=== PATIENT | female | born 1995 | race Caucasian/White ===

== ENCOUNTER 2016-09-19 12:52 | Emergency (ER) | payer SELFPAY ==
[~2016-09-19] VITALS: Ht 160 cm; Wt 81.5 kg
[~2016-09-19 12:52] MED LIST: BISM262O23 PO; RANI150T9 PO; SUCR1TAB56 PO
[2016-09-19 13:10] VITALS: Ht 160 cm; Wt 81.5 kg
[2016-09-19 14:31] LABS: URINE BLOOD (Dip) POC 3+ (NEGATIVE)
[2016-09-19] MEDS ORDERED: CEPH-443 PO (15:16)
[2016-09-19] MEDS ORDERED: PHEN-537 PO (15:16)
[2016-09-19 15:32] VITALS: TEMP 98.2
--- NOTE | 2016-09-19 15:41 | ERD ---
ER Documentation Chief Complaint Date/Time DATE: 09/19/16 TIME: 15:35 Chief Complaint Pt with dysuria, blood in urine, frequency x 1 week. HPI 20-year-old female patient with no significant past medical history presents to the ED complaining of dysuria, flank pain and hematuria intermittently for 1 week. Reports that she has a burning sensation when she pees. States that initially she was taking cranberry juice which slightly alleviated her symptoms. States that her last menses was on August 27, 2016. Reports that she has some slight flank pain. Denies any vaginal bleeding, vaginal discharge, abdominal pain, nausea, vomiting, diarrhea. ROS All systems reviewed and are negative except as per history of present illness. Medications Home Meds Active Scripts Cephalexin* (Keflex*) 500 Mg Capsule, 500 MG PO QID for 7 Days, CAP Prov:LESLEY PHOENIX PA-C 09/19/16 Phenazopyridine Hcl* (Pyridium*) 100 Mg Tab, 100 MG PO TID Y for URINARY PAIN, # 8 TAB Prov:LESLEY PHOENIX PA-C 09/19/16 Ranitidine Hcl* (Zantac*) 150 Mg Tablet, 150 MG PO BID Y for EPIGASTRIC PAIN, # 30 TAB Prov:MATTIE CONNOLLY 10/02/15 Sucralfate* (Carafate*) 1 Gm Tab, 1 GM PO QID, #30 TAB Prov:MATTIE CONNOLLY SReggie 10/02/15 Reported Medications Bismuth Subsalicylate* (Pepto-Bismol*) 262 Mg/15 Ml Oral.susp, 15 ML PO Q6H Y for CONSTIPATION, ML 10/02/15 Allergies Allergies: Coded Allergies: No Known Drug Allergies (Verified Allergy, Unknown, 10/02/15) PMhx/Soc Medical and Surgical Hx: pt denies Medical Hx, pt denies Surgical Hx Hx Alcohol Use: No Hx Substance Use: No Hx Tobacco Use: No Smoking Status: Never smoker Physical Exam Vitals Vital Signs Date Time Temp Pulse Resp B/P Pulse Ox O2 Delivery O2 Flow Rate FiO2 09/19/16 13:10 98.4 66 16 133/72 98 Physical Exam Const: Ffj-zvy-[id number], well-nourished. In no acute distress. Head: Atraumatic, normocephalic Eyes: Normal Conjunctiva without injection. No purulent discharge. ENT: Normal external ear, nose. Moist oropharynx without tonsillar exudates. Non -erythematous pharynx. Uvula midline. No drooling. No trismus. Neck: No cervical midline tenderness. Full range of motion. No meningismus. No cervical lymphadenopathy. No JVD. Resp: Clear to auscultation bilaterally. No wheezing, rhonchi, rales, or crackles. No accessory muscle use. No retractions. Cardio: Regular rate and rhythm. No murmurs, rubs or gallops. Abd: Soft, nontender, non distended. Normal bowel sounds. No palpable masses. No rebound tenderness. No guarding. Negative McBurney's point. Negative psoas sign. Negative obturator sign. Back: No midline tenderness. No CVA tenderness. Skin: No petechiae or rashes Ext: No cyanosis, or edema. Neur: Awake and alert. Normal gait. Normal coordination. Psych: Normal Mood and Affect Results 24 hrs Laboratory Tests Test 09/19/16 14:34 Bedside Urine pH (LAB) 5.5 Bedside Urine Protein (LAB) 1+ Bedside Urine Glucose (UA) Negative Bedside Urine Ketones (LAB) Negative Bedside Urine Blood 3+ Bedside Urine Nitrite (LAB) Negative Bedside Urine Leukocyte Esterase (L 1+ Procedures/MDM 20-year-old female patient with no significant past medical history presents to the ED complaining of burning with urination, flank pain, dysuria, gross hematuria. Patient is afebrile nontoxic appearing. Patient has normal vital signs. A urine dip and urine was ordered to further evaluate patient. Urine dip showed 1+ leukocyte esterase, 3+ hematuria. Differentials include urinary tract infection vs. nephrolithiasis vs. early pyelonephritis . Patient however states that she no longer has flank pain. Patient will be treated for a urinary tract infection based on her symptoms. However due to the hematuria and being a smoker, patient was strictly instructed to follow-up with a urologist to rule out bladder cancer. Patient is ambulating here in the ED without difficulty. Denies saddle anesthesia, numbness or tingling, urine or bowel incontinence, weakness. Low suspicion for septic renal stone, cauda equina syndrome, cord compression, aortic aneurysm, aortic dissection, epidural abscess, spinal hematoma, malignancy, or other emergent conditions. Discharge medications: Keflex, Pyridium Follow up with primary care physician in 1-2 days. Instructed patient to return to the ED sooner for any worsening symptoms. Patient's questions were answered. Patient understood and agreed with discharge plan. Patient discharged stable. Departure Diagnosis: Primary Impression: Dysuria Condition: Stable Patient Instructions: Dysuria, Understanding Urinary Tract Infections (UTIs) Referrals: [facility] YOU HAVE RECEIVED A MEDICAL SCREENING EXAM AND THE RESULTS INDICATE THAT YOU DO NOT HAVE A CONDITION THAT REQUIRES URGENT TREATMENT IN THE EMERGENCY DEPARTMENT. FURTHER EVALUATION AND TREATMENT OF YOUR CONDITION CAN WAIT UNTIL YOU ARE SEEN IN YOUR DOCTORS OFFICE WITHIN THE NEXT 1-2 DAYS. IT IS YOUR RESPONSIBILITY TO MAKE AN APPOINTMENT FOR FOLOW-UP CARE. IF YOU HAVE A PRIMARY DOCTOR --you should call your primary doctor and schedule an appointment IF YOU DO NOT HAVE A PRIMARY DOCTOR YOU CAN CALL OUR PHYSICIAN REFERRAL HOTLINE AT IF YOU CAN NOT AFFORD TO SEE A PHYSICIAN YOU CAN CHOSE FROM THE FOLLOWING [facility] [address] [facility] [address] [employer] [facility] [address] [facility] [facility] [address] [facility] [address] [facility]. [facility] [address] [facility]. [facility] YOU HAVE RECEIVED A MEDICAL SCREENING EXAM AND THE RESULTS INDICATE THAT YOU DO NOT HAVE A CONDITION THAT REQUIRES URGENT TREATMENT IN THE EMERGENCY DEPARTMENT. FURTHER EVALUATION AND TREATMENT OF YOUR CONDITION CAN WAIT UNTIL YOU ARE SEEN IN YOUR DOCTORS OFFICE WITHIN THE NEXT 1-2 DAYS. IT IS YOUR RESPONSIBILITY TO MAKE AN APPOINTMENT FOR FOLOW-UP CARE. IF YOU HAVE A PRIMARY DOCTOR --you should call your primary doctor and schedule and appointment IF YOU DO NOT HAVE A PRIMARY DOCTOR YOU CAN CALL OUR PHYSICIAN REFERRAL HOTLINE AT . IF YOU CAN NOT AFFORD TO SEE A PHYSICIAN YOU CAN CHOSE FROM THE FOLLOWING [facility] INSTITUTIONS: [facility] [address] [place] [address] [facility] [address] [place] [address] [facility] [address] [place] [address] [facility] Additional Instructions: Call your primary care doctor TOMORROW for an appointment during the next 1-2 days for a referral to a urologist.See the doctor sooner or return here if your condition worsens before your appointment time. LESLEY PHOENIX PA-C Sep 19, 2016 15:41 LESLEY PHOENIX PA-C Sep 19, 2016 15:41
== END 2016-09-19 15:29 | disposition home or self-care (01) ==
LOC: FTE 12:52
DX: R30.0 Dysuria (principal)
CPT/HCPCS: 81003; 99283

== ENCOUNTER 2017-02-06 05:19 | Emergency (ER) | payer MEDICAID ==
[~2017-02-06] VITALS: Ht 162.6 cm; Wt 84.3 kg
[~2017-02-06 05:19] MED LIST changes: +CEPH-443 PO; +PHEN-537 PO
[2017-02-06 05:29] VITALS: Ht 162.6 cm; Wt 84.3 kg
[2017-02-06] MEDS ORDERED: FAMOTIDINE 20 MG TAB PO STA (06:06)
[2017-02-06] MEDS ORDERED: ACETAMINOPHEN 500 MG TAB PO STA (06:06)
[2017-02-06] MEDS ORDERED: LIDOCAINE/MYLANTA 40 ML BTL PO STA (06:06)
--- NOTE | 2017-02-06 06:40 | ERD ---
ER Documentation Chief Complaint Chief Complaint 5 weeks upper abd pain, back pain HPI This is a 21 -year-old female who presents to the emergency department today complaining of upper abdominal pain and some back pain that started at midnight last night. States that she ate [id number] last night states that she took ranitidine. States that the pain is burning and she feels nauseated. States she is approximately 4-5 weeks . Denies any vaginal bleeding. States that one week ago she had an ultrasound and Shanice and everything was normal although they could not see the baby yet. Denies any fevers or chills. ROS All systems reviewed and are negative except as per history of present illness. Medications Home Meds Active Scripts Ondansetron Hcl* (Zofran*) 4 Mg Tablet, 4 MG PO Q6H for NAUSEA AND/OR VOMITING, #30 TAB Prov:BONILLA LARIOS PA-C 02/06/17 Famotidine* (Pepcid*) 20 Mg Tablet, 20 MG PO BID for 14 Days, TAB Prov:BONILLA LARIOS PA-C 02/06/17 Cephalexin* (Keflex*) 500 Mg Capsule, 500 MG PO QID for 7 Days, CAP Prov:BONILLA LARIOS PA-C 02/06/17 Acetaminophen* (Tylophen*) 500 Mg Capsule, 1 CAP PO Q6H Y for PAIN AND OR ELEVATED TEMP, #30 CAP Prov:BONILLA LARIOS PA-C 02/06/17 Cephalexin* (Keflex*) 500 Mg Capsule, 500 MG PO QID for 7 Days, CAP Prov:LESLEY PHOENIX PA-C 09/19/16 Phenazopyridine Hcl* (Pyridium*) 100 Mg Tab, 100 MG PO TID Y for URINARY PAIN, # 8 TAB Prov:LESLEY PHOENIX PA-C 09/19/16 Ranitidine Hcl* (Zantac*) 150 Mg Tablet, 150 MG PO BID Y for EPIGASTRIC PAIN, # 30 TAB Prov:MATTIE CONNOLLY 10/02/15 Sucralfate* (Carafate*) 1 Gm Tab, 1 GM PO QID, #30 TAB Prov:MATTIE CONNOLLY 10/02/15 Reported Medications Bismuth Subsalicylate* (Pepto-Bismol*) 262 Mg/15 Ml Oral.susp, 15 ML PO Q6H Y for CONSTIPATION, ML 10/02/15 Allergies Allergies: Coded Allergies: No Known Drug Allergies (Verified Allergy, Unknown, 10/02/15) PMhx/Soc Medical and Surgical Hx: pt denies Surgical Hx Hx Miscellaneous Medical Probl: Yes (gastritis) Hx Alcohol Use: No Hx Substance Use: No Hx Tobacco Use: No Smoking Status: Never smoker Physical Exam Vitals Vital Signs Date Time Temp Pulse Resp B/P Pulse Ox O2 Delivery O2 Flow Rate FiO2 02/06/17 05:29 98.3 97 20 130/73 100 Physical Exam Const: NAD Head: Atraumatic Eyes: Normal Conjunctiva ENT: Normal External Ears, Nose and Mouth. Neck: Full range of motion..~ No meningismus. Resp: Clear to auscultation bilaterally Cardio: Regular rate and rhythm, no murmurs Abd: Soft,epigastric and RUQ tenderness non distended. Normal bowel sounds. No Tenderness at McBurney's. No pelvic pain. Skin: No petechiae or rashes Back: No midline or flank tenderness Ext: No cyanosis, or edema Neur: Awake and alert Psych: Normal Mood and Affect Result Diagram: 02/06/1761902/06/1720 Results 24 hrs Laboratory Tests Test 02/06/17 06:20 02/06/17 06:21 White Blood Count 11.210^3/ul Red Blood Count 5.1010^6/ul Hemoglobin 12.3g/dl Hematocrit 38.8% Mean Corpuscular Volume 76.1fl Mean Corpuscular Hemoglobin 24.1pg Mean Corpuscular Hemoglobin Concent 31.7g/dl Red Cell Distribution Width 14.3% Platelet Count 51768^3/UL Mean Platelet Volume 10.2fl Neutrophils % 60.0% Lymphocytes % 31.5% Monocytes % 6.3% Eosinophils % 1.2% Basophils % 0.6% Nucleated Red Blood Cells % 0.0/100WBC Neutrophils # 6.710^3/ul Lymphocytes # 3.510^3/ul Monocytes # 0.710^3/ul Eosinophils # 0.110^3/ul Basophils # 0.110^3/ul Nucleated Red Blood Cells # 0.010^3/ul Sodium Level 141mmol/L Potassium Level 3.9mmol/L Chloride Level 102mmol/L Carbon Dioxide Level 24mmol/L Anion Gap 19 Blood Urea Nitrogen 8mg/dl Creatinine 0.58mg/dl Glucose Level 95mg/dl Calcium Level 10.0mg/dl Total Bilirubin 0.1mg/dl Direct Bilirubin 0.00mg/dl Indirect Bilirubin 0.1mg/dl Aspartate Amino Transf (AST/SGOT) 88IU/L Alanine Aminotransferase (ALT/SGPT) 89IU/L Alkaline Phosphatase 112IU/L Total Protein 8.5g/dl Albumin 4.7g/dl Globulin 3.80g/dl Albumin/Globulin Ratio 1.23 Lipase 115U/L Urine Color YELLOW Urine Clarity CLEAR Urine pH 5.0 Urine Specific [place] 1.018 Urine Ketones NEGATIVEmg/dL Urine Nitrite NEGATIVEmg/dL Urine Bilirubin NEGATIVEmg/dL Urine Urobilinogen NEGATIVEmg/dL Urine Leukocyte Esterase 2+Oleksandr/ul Urine Microscopic RBC 1/HPF Urine Microscopic WBC 5/HPF Urine Squamous Epithelial Cells FEW/HPF Urine Bacteria FEW/HPF Urine Hemoglobin NEGATIVEmg/dL Urine Glucose NEGATIVEmg/dL Urine Total Protein NEGATIVEmg/dl Current Medications Medications (Trade) Dose Ordered Sig/Catie Route PRN Reason Start Time Stop Time Status Last Admin Dose Admin Famotidine (Pepcid) 20 mg ONCE STAT PO 02/06/17 06:06 02/06/17 06:10 DC 02/06/17 06:30 Miscellaneous Medication (Gi Cocktail (2)) 40 ml ONCE STAT PO 02/06/17 06:06 02/06/17 06:10 DC 02/06/17 06:30 Acetaminophen (Tylenol Tab) 500 mg ONCE STAT PO 02/06/17 06:06 02/06/17 06:10 DC 02/06/17 06:30 DIAGNOSTIC IMAGING REPORT Patient: DARION WALTERS : 1995 Age: 21 Sex: F [id number] DOS: 02/06/17 0606 Ordering MD: BONILLA LARIOS PA-C [facility]: [facility] Room/Bed: PROCEDURE: Abdominal ultrasound, limited. CLINICAL INDICATION: Abdominal pain. TECHNIQUE: Multiple real-time images were acquired of the patient's right upper abdomen utilizing a high resolution transducer. COMPARISON: None FINDINGS: The liver demonstrates normal echogenicity and size measuring 14.8 cm. There is no focal mass or intrahepatic biliary ductal dilatation. The portal vein is patent. The gallbladder is not distended. Multiple small echogenic gallstones are identified. There is no pericholecystic fluid or gallbladder wall thickening. The common bile duct measures 4.1 mm in maximal dimension. The visualized portions of the pancreas are unremarkable. No free fluid is identified. The right kidney is normal size and echogenicity measuring 10.4 cm. There is no focal renal mass or echogenic calculus identified. There is no obstructive uropathy. IMPRESSION: Cholelithiasis without ultrasound evidence of cholecystitis. .Juan Yo MD, Date Time Electronically viewed and signed by .Juan Yo MD, on 02/06/2017 06:51 .T/ CC: BONILLA LARIOS PA-C Procedures/[facility] This is a 21-year-old female presents to the emergency department today complaining of upper abdominal and back pain that started last night. Given the location of the pain and status I did obtain laboratory workup as well as a right upper quadrant ultrasound and UA Laboratory workup mildly elevated white blood cell count. She is not anemic. Platelets are within normal limits. Electrolytes are within normal limits. Glucose is within normal limits. Liver enzymes are very mildly elevated. Lipase is within normal limits. UA shows 2+ leukocyte esterase negative nitrates. Right Upper quadrant ultrasound was gallstones without ultrasound evidence of cholecystitis. No pericholecystic fluid or gallbladder wall thickening. At this time is consistent with biliary colic and urinary tract infection. I have explained this to the patient. Indicated that yes she does have a urinary tract infection is currently being treated with it with amoxicillin. I explained to her that I do not feel that that drug will help her at this time and I have switched her to Keflex. Patient has no CVA tenderness and she is afebrile and otherwise well-appearing. Low suspicion for pyelonephritis or nephrolithiasis. Urine was sent for culture. Patient has no lower abdominal pain or pelvic pain and no vaginal bleeding and I do not feel that she requires further OB evaluation or management. Have low suspicion for tubo-ovarian abscess, ectopic , ovarian torsion. Patient was given Pepcid, Tylenol and a GI cocktail here in the emergency department. The patient will be given a prescription for Pepcid, Tylenol and Zofran for home At this time the patient is stable for discharge and outpatient management. Patient should follow up with their PCP in the next 1-2 days. They may return to the emergency department sooner for any persistent or worsening of symptoms. Patient understood and agreed with the plan. Discussed the patient with Dr. Galarza and he is in agreement with the plan Departure Diagnosis: Primary Impression: Biliary colic Additional Impression: UTI (urinary tract infection) Urinary tract infection type: site unspecified Hematuria presence: without hematuria Qualified Code: N39.0 - Urinary tract infection without hematuria, site unspecified Condition: Fair BONILLA LARIOS PA-C Feb 06, 2017 06:40
--- NOTE | 2017-02-06 06:51 | RADRPT ---
PROCEDURE: Abdominal ultrasound, limited. CLINICAL INDICATION: Abdominal pain. TECHNIQUE: Multiple real-time images were acquired of the patient's right upper abdomen utilizing a high resolution transducer. COMPARISON: None FINDINGS: The liver demonstrates normal echogenicity and size measuring 14.8 cm. There is no focal mass or in trahepatic biliary ductal dilatation. The portal vein is patent. The gallbladder is not distended. Multiple small echogenic gallstones are identified. There is no pericholecystic fluid or gallblad micheal wall thickening. The common bile duct measures 4.1 mm in maximal dimension. The visualized por tions of the pancreas are unremarkable. No free fluid is identified. The right kidney is normal size and echogenicity measuring 10.4 cm. There is no focal renal mass or echogenic calculus identified. There is no obstructive uropathy. IMPRESSION: Cholelithiasis without ultrasound evidence of cholecystitis. .Juan Yo MD, Date Time Electronically viewed and signed by .Juan Yo MD, on 02/06/2017 06:51 .T/
[2017-02-06] MEDS ORDERED: ACET500C5 PO (07:55)
[2017-02-06] MEDS ORDERED: FAMO-96 PO (07:55)
[2017-02-06] MEDS ORDERED: CEPH-443 PO (07:55)
[2017-02-06] MEDS ORDERED: ONDA4TAB8 PO (07:56)
== END 2017-02-06 08:06 | disposition home or self-care (01) ==
LOC: FTE 05:19
DX: O99.611 Diseases of the digestive system complicating pregnancy, first trimester (principal); O23.41 Unspecified infection of urinary tract in pregnancy, first trimester; K80.50 Calculus of bile duct without cholangitis or cholecystitis without obstruction; R10.10 Upper abdominal pain, unspecified; Z3A.00 Weeks of gestation of pregnancy not specified
CPT/HCPCS: 36415; 76705; 80053; 81001; 83690; 85025; 87086; Z7502; Z7610

== ENCOUNTER 2017-03-01 08:35 | Emergency (ER) | payer MEDICAID ==
[~2017-03-01] VITALS: Ht 162.6 cm; Wt 82.6 kg
[~2017-03-01 08:35] MED LIST changes: +ACET500C5 PO; +FAMO-96 PO; +ONDA4TAB8 PO
[2017-03-01 08:38] VITALS: Ht 162.6 cm; Wt 82.6 kg
[2017-03-01] MEDS ORDERED: morphine 2 MG INJ IV STA (09:07)
[2017-03-01] MEDS ORDERED: ONDANSETRON 4 MG INJ IV STA (09:07)
[2017-03-01] MEDS ORDERED: LACTATED RINGER'S 1,000 ML IV ONE (09:08)
[2017-03-01 09:34] LABS: BASOPHILS % 0.5 % (0.0-2.0); EOSINOPHILS # 0.1 10^3/ul (0.0-0.5); EOSINOPHILS % 1.1 % (0.0-7.0); HEMATOCRIT 34.9 % (37.0-47.0); HEMOGLOBIN 11.7 g/dl (12.0-16.0); LYMPHOCYTES # 2.3 10^3/ul (0.8-2.9); LYMPHOCYTES % 26.2 % (18.0-55.0); MEAN CORPUSCULAR HEMOGLOBIN 25.4 pg (29.0-33.0); MEAN CORPUSCULAR HGB CONC 33.5 g/dl (32.0-37.0); MEAN CORPUSCULAR VOLUME 75.7 fl (72.0-104.0); MONOCYTE # 0.7 10^3/ul (0.3-0.9); MONOCYTES % 7.4 % (0.0-13.0); NEUTROPHIL # 5.7 10^3/ul (1.6-7.5); NEUTROPHILS % 64.5 % (30.0-74.0); PLATELET COUNT 268 10^3/UL (140-415); RED BLOOD COUNT 4.61 10^6/ul (4.20-5.40); RED CELL DISTRIBUTION WIDTH 15.2 % (11.5-14.5); WHITE BLOOD COUNT 8.8 10^3/ul (4.8-10.8)
[2017-03-01 09:40] LABS: ADD UMIC YES; UR ASCORBIC ACID NEGATIVE (NEGATIVE); UR BILIRUBIN (Dip) NEGATIVE (NEGATIVE); UR BLOOD (Dip) NEGATIVE (NEGATIVE); UR CLARITY SLIGHTLY CLOUDY (CLEAR); UR COLOR YELLOW (YELLOW); UR GLUCOSE (Dip) NEGATIVE (NEGATIVE); UR KETONES (Dip) NEGATIVE (NEGATIVE); UR LEUKOCYTE ESTERASE (Dip) 1+ Leu/ul (NEGATIVE); UR MUCUS FEW /HPF (NONE SEEN); UR NITRITE (Dip) NEGATIVE (NEGATIVE); UR RBC 1 /HPF (0-5); UR SPECIFIC GRAVITY (Dip) 1.028 (1.003-1.030); UR SQUAMOUS EPITHELIAL CELL MODERATE /HPF (FEW); UR TOTAL PROTEIN (Dip) NEGATIVE (NEGATIVE); UR UROBILINOGEN (Dip) 2+ mg/dL (NEGATIVE)
[2017-03-01 09:58] LABS: ALBUMIN 4.1 g/dl (3.3-4.9); ALBUMIN/GLOBULIN RATIO 1.24; BILIRUBIN,INDIRECT 0.1 mg/dl (0-1.1); BILIRUBIN,TOTAL 0.1 mg/dl (0.2-1.3); CALCIUM 9.2 mg/dl (8.4-10.2); CREATININE 0.49 mg/dl (0.44-1.00); POTASSIUM 3.4 mmol/L (3.5-5.1); TOTAL PROTEIN 7.4 g/dl (6.1-8.1)
--- NOTE | 2017-03-01 10:24 | RADRPT ---
PROCEDURE: US Abdomen. CLINICAL INDICATION: Right upper quadrant pain. TECHNIQUE: Limited right upper quadrant Multiple real-time images were acquired utilizing a high r esolution transducer. COMPARISON: 02/06/2017 abdominal ultrasound FINDINGS: The liver demonstrates normal echogenicity. The liver is at the upper limits of normal in size and no focal solid lesions are seen. The portal vein is patent with normal direction of flow. No intra hepatic biliary dilatation is seen. The liver measures 18 cm in length. The gallbladder is filled with gallstones and sludge. There is no pericholecystic fluid or gallbla dder wall thickening. The common bile duct measures 4.37 mm in maximal dimension. No evidence of ch oledocholithiasis. The visualized portions of the pancreas are unremarkable. No free fluid is identified. The right kidney is normal in size, and demonstrates normal echogenicity and cortical thickness. T he right kidney measures 10.6 x 4.9 x 5.8 cm. . There is no evidence of hydronephrosis or nephrolit hiasis. IMPRESSION: Redemonstration of cholelithiasis and sludge in the gallbladder. No evidence of gallbladder wall thi ckening, pericholecystic fluid, or choledocholithiasis. No intra or extra panic biliary ductal dilat ation. RPTAT:AAJJ Physician Bran Date Time Electronically viewed and signed by Physician Bran on 03/01/2017 10:23 KYARA/
[2017-03-01] MEDS ORDERED: ACET500C5 PO (10:32)
[2017-03-01] MEDS ORDERED: ONDA8TAB14 PO (10:34)
--- NOTE | 2017-03-01 10:38 | ERD ---
ER Documentation Chief Complaint Chief Complaint RUQ PAIN W/VOMITTING SINCE LAST NIGHT DX:GALLSTONES 2WKS AGO HPI 21-year-old female complaints with right upper quadrant pain and vomiting Since last night.. The vomit is nonbilious nonbloody. Patient was diagnosed with gallstones approximately 3 weeks ago. She has been fine since then the pain returned last night patient fevers, lower abdominal pain, vaginal bleeding. History significant for 10 week . ROS All systems reviewed and are negative except as per history of present illness. Medications Home Meds Active Scripts Ondansetron (Ondansetron Odt) 8 Mg Tab.rapdis, 8 MG PO Q6H Y for NAUSEA AND/OR VOMITING, #8 TAB Prov:MAGED SOTOMAYOR MD 03/01/17 Acetaminophen* (Tylophen*) 500 Mg Capsule, 1 CAP PO Q6H Y for PAIN AND OR ELEVATED TEMP, #20 CAP Prov:MAEGD SOTOMAYOR MD 03/01/17 Ondansetron Hcl* (Zofran*) 4 Mg Tablet, 4 MG PO Q6H for NAUSEA AND/OR VOMITING, #30 TAB Prov:BONILLA LARIOS-C 02/06/17 Famotidine* (Pepcid*) 20 Mg Tablet, 20 MG PO BID for 14 Days, TAB Prov:BONILLA LARIOS-C 02/06/17 Cephalexin* (Keflex*) 500 Mg Capsule, 500 MG PO QID for 7 Days, CAP Prov:BONILLA LARIOS-C 02/06/17 Acetaminophen* (Tylophen*) 500 Mg Capsule, 1 CAP PO Q6H Y for PAIN AND OR ELEVATED TEMP, #30 CAP Prov:BONILLA LARIOS-C 02/06/17 Cephalexin* (Keflex*) 500 Mg Capsule, 500 MG PO QID for 7 Days, CAP Prov:LESLEY PHOENIX-Kev 09/19/16 Phenazopyridine Hcl* (Pyridium*) 100 Mg Tab, 100 MG PO TID Y for URINARY PAIN, # 8 TAB Prov:LESLEY PHOENIX PA-C 09/19/16 Ranitidine Hcl* (Zantac*) 150 Mg Tablet, 150 MG PO BID Y for EPIGASTRIC PAIN, # 30 TAB Prov:MATTIE CONNOLLY 10/02/15 Sucralfate* (Carafate*) 1 Gm Tab, 1 GM PO QID, #30 TAB Prov:MATTIE CONNOLLY 10/02/15 Reported Medications Bismuth Subsalicylate* (Pepto-Bismol*) 262 Mg/15 Ml Oral.susp, 15 ML PO Q6H Y for CONSTIPATION, ML 10/02/15 Allergies Allergies: Coded Allergies: No Known Drug Allergies (Verified Allergy, Unknown, 10/02/15) PMhx/Soc Hx Miscellaneous Medical Probl: Yes (gastritis, gallstones) Hx Alcohol Use: No Hx Substance Use: No Hx Tobacco Use: No Physical Exam Vitals Vital Signs Date Time Temp Pulse Resp B/P Pulse Ox O2 Delivery O2 Flow Rate FiO2 03/01/17 08:38 97.7 76 18 126/76 99 Physical Exam Const: [] Alert, [id number]. Head: Atraumatic Eyes: Normal Conjunctiva ENT: Normal External Ears, Nose and Mouth. Neck: Full range of motion..~ No meningismus. Resp: Clear to auscultation bilaterally Cardio: Regular rate and rhythm, no murmurs Abd: Soft, tender in the right upper quadrant. No rebound. No tenderness at McBurney's point., non distended. Normal bowel sounds Skin: No petechiae or rashes Back: No midline or flank tenderness Ext: No cyanosis, or edema Neur: Awake and alert Psych: Normal Mood and Affect Result Diagram: 03/01/1715 03/01/17 0915 Results 24 hrs Laboratory Tests Test 03/01/17 09:15 White Blood Count 8.810^3/ul Red Blood Count 4.6110^6/ul Hemoglobin 11.7g/dl Hematocrit 34.9% Mean Corpuscular Volume 75.7fl Mean Corpuscular Hemoglobin 25.4pg Mean Corpuscular Hemoglobin Concent 33.5g/dl Red Cell Distribution Width 15.2% Platelet Count 07326^3/UL Mean Platelet Volume 10.0fl Neutrophils % 64.5% Lymphocytes % 26.2% Monocytes % 7.4% Eosinophils % 1.1% Basophils % 0.5% Nucleated Red Blood Cells % 0.0/100WBC Neutrophils # 5.710^3/ul Lymphocytes # 2.310^3/ul Monocytes # 0.710^3/ul Eosinophils # 0.110^3/ul Basophils # 0.010^3/ul Nucleated Red Blood Cells # 0.010^3/ul Urine Color YELLOW Urine Clarity SLIGHTLY CLOUDY Urine pH 6.0 Urine Specific Frederic 1.028 Urine Ketones NEGATIVEmg/dL Urine Nitrite NEGATIVEmg/dL Urine Bilirubin NEGATIVEmg/dL Urine Urobilinogen 2+mg/dL Urine Leukocyte Esterase 1+Oleksandr/ul Urine Microscopic RBC 1/HPF Urine Microscopic WBC 9/HPF Urine Squamous Epithelial Cells MODERATE/HPF Urine Mucus FEW/HPF Urine Hemoglobin NEGATIVEmg/dL Urine Glucose NEGATIVEmg/dL Urine Total Protein NEGATIVEmg/dl Sodium Level 143mmol/L Potassium Level 3.4mmol/L Chloride Level 103mmol/L Carbon Dioxide Level 24mmol/L Anion Gap 19 Blood Urea Nitrogen 8mg/dl Creatinine 0.49mg/dl Glucose Level 100mg/dl Calcium Level 9.2mg/dl Total Bilirubin 0.1mg/dl Direct Bilirubin 0.00mg/dl Indirect Bilirubin 0.1mg/dl Aspartate Amino Transf (AST/SGOT) 57IU/L Alanine Aminotransferase (ALT/SGPT) 51IU/L Alkaline Phosphatase 105IU/L Total Protein 7.4g/dl Albumin 4.1g/dl Globulin 3.30g/dl Albumin/Globulin Ratio 1.24 Lipase 149U/L Current Medications Medications (Trade) Dose Ordered Sig/Catie Route PRN Reason Start Time Stop Time Status Last Admin Dose Admin Morphine Sulfate (morphine) 2 mg ONCE STAT IV 03/01/17 09:07 03/01/17 09:09 DC 03/01/17 09:23 Ondansetron HCl 4 mg 4 mg ONCE STAT IV 03/01/17 09:07 03/01/17 09:09 DC 03/01/17 09:22 Lactated Ringer's (Lr) 1,000 ml @ 0 mls/hr Q0M ONCE IV 03/01/17 09:08 03/01/17 09:10 DC 03/01/17 09:23 Procedures/MDM CBC CMP showed no significant acute abnormalities. Lipase is normal. Right upper quadrant ultrasound shows gallstones and sludge without evidence of cholecystitis or obstruction. Morphine 4 mg IV and Zofran 4 mg IV. Patient had resolution pain after observation treatment. Patient presents with signs and symptoms of biliary colic. Is no evidence of choledocholithiasis or cholecystitis or signs to suggest appendicitis, ectopic , additional complications related to her . She will treated with Tylenol and Zofran instructions for avoidance of fatty meals and primary care follow-up and return precautions. The patient was stable with no new complaints during the ER course. Clinically, there is no current evidence to suggest meningitis, sepsis, acute abdomen, pneumonia, acute coronary syndrome, pulmonary embolism, or any other emergent condition appearing to require further evaluation or hospitalization. The patient should certainly return for any new or worsening symptoms per the aftercare instructions. They should otherwise follow-up with her primary care doctor for reevaluation this week. Departure Diagnosis: Primary Impression: Gallstones Additional Impression: Abdominal pain Abdominal location: right upper quadrant Qualified Code: R10.11 - Right upper quadrant abdominal pain Condition: Stable Patient Instructions: Gallstones Additional Instructions: No evidence of infection or obstruction. Avoid fatty foods at home. Recheck for new or worsening symptoms-fevers, vomiting, new symptoms. MAGED SOTOMAYOR MD Mar 01, 2017 10:38
[2017-03-01 10:42] VITALS: BP 125/74; PULSE 78; RESP 17
== END 2017-03-01 10:43 | disposition home or self-care (01) ==
LOC: FTE 08:35
DX: K80.20 Calculus of gallbladder without cholecystitis without obstruction (principal)
CPT/HCPCS: 36415; 76705; 80053; 81001; 83690; 85025; 96374; 96375; J2270; J2405; J7120; Z7502

== ENCOUNTER 2017-06-10 12:20 | Inpatient (IN) | END 2017-06-12 13:45 | disposition home or self-care (01) | DRG 780 ==

== ENCOUNTER 2017-06-28 05:11 | Outpatient (CLI) | END 2017-06-28 08:46 | disposition home or self-care (01) ==

== ENCOUNTER 2017-06-28 22:00 | Inpatient (IN) | END 2017-07-09 17:37 | disposition home or self-care (01) | DRG 781 ==

== ENCOUNTER 2017-09-21 15:00 | Inpatient (IN) | END 2017-09-24 14:40 | disposition home or self-care (01) | DRG 775 ==